=== PATIENT | female | born 1980 | race Hispanic/Latino ===

== ENCOUNTER 2024-10-10 09:18 | Emergency (ER) | payer SELFPAY ==
[2024-10-10] MEDS ORDERED: Acetaminophen 500 MG TAB ONE ×2 (09:38→09:41)
[2024-10-10] MEDS ORDERED: Ketorolac Tromethamine 30 MG (1 mL) VIAL ONE (09:41)
== END 2024-10-10 09:47 | disposition home or self-care (01) ==
LOC: ERS 09:18
DX: M54.30 Sciatica, unspecified side (principal)
CPT/HCPCS: 96372; 99282; J1885